=== PATIENT | female | born 1970 | race Caucasian/White ===

== ENCOUNTER 2017-02-27 16:55 | Emergency (ER) | payer SELFPAY ==
[2017-02-27 17:06] VITALS: TEMP 98; BMI 37.8
[2017-02-27] MEDS ORDERED: METOCLOPRAMIDE HCL INJECTION 10 MG/2 ML VIAL IVPB ONE (19:48)
[2017-02-27] MEDS ORDERED: morphine CARPU-JECT 4 MG/1 ML DISP.SYRIN IVPUSH ONE (19:48)
[2017-02-27] MEDS ORDERED: SODIUM CHLORIDE 1,000 ML IV STA (19:48)
[2017-02-27 20:06] LABS: BASOPHIL 0.7 % (0-2.0); EOSINOPHIL 0.9 % (0-4.5); MCH 31.7 pg (25.7-33.7); MCHC 34.3 g/dl (32.0-36.0); MEAN CELL VOLUME 92.4 fl (80-96); MEAN PLT VOLUME 6.6 fl (7.5-11.1); NEUTROPHILS 57.5 % (42.8-82.8); PLATELET COUNT 291 K/MM3 (134-434); RDW 12.9 % (11.6-15.6); WHITE BLOOD COUNT 6.2 K/mm3 (4.0-10.0)
[2017-02-27 20:17] LABS: URINE APPEARANCE CLEAR; URINE BILIRUBIN NEGATIVE (NEGATIVE); URINE BLOOD NEGATIVE (NEGATIVE); URINE COLOR STRAW; URINE GLUCOSE (UA) NEGATIVE (NEGATIVE); URINE KETONE NEGATIVE (NEGATIVE); URINE LEUK ESTERASE NEGATIVE (NEGATIVE); URINE NITRITE NEGATIVE (NEGATIVE); URINE PROTEIN NEGATIVE (NEGATIVE); URINE UROBILINOGEN NEGATIVE E.U./dl (0.2-1.0)
[2017-02-27] MEDS ORDERED: morphine CARPU-JECT 4 MG/1 ML DISP.SYRIN ONE (20:26)
[2017-02-27] MEDS ORDERED: METOCLOPRAMIDE HCL INJECTION 10 MG/2 ML VIAL ONE (20:26)
[2017-02-27 20:48] LABS: ALBUMIN 3.8 g/dl (3.4-5.0); ANION GAP 10 (8-16); BILIRUBIN,TOTAL 0.7 mg/dL (0.2-1.0); C-REACTIVE PROTEIN 0.5 MG/DL (0.00-0.3); CALCIUM 9.2 mg/dL (8.5-10.1); CO2 26 mmol/L (21-32); COCKROFT - GAULT 139.825; CREATININE 0.8 mg/dL (0.55-1.02); GLUCOSE,RANDOM 79 mg/dL (74-106); SGOT/AST 53 U/L (15-37); SGPT/ALT 59 U/L (12-78); TOT PROT 7.7 g/dl (6.4-8.2)
[2017-02-27 20:50] LABS: ALK PHOS 81 U/L (45-117)
--- NOTE | 2017-02-27 22:45 | PDOC ---
History of Present Illness - General Chief Complaint: Pain Stated Complaint: PCP SENT/CYST Time Seen by Provider: 02/27/17 19:20 History Source: Patient Exam Limitations: No Limitations - History of Present Illness Travel History: No Initial Comments: 02/27/17 22:40 46yo Female w/ PmHx: Lupus, Hep C, COPD, Asthma, HTN, Hypothyroidism presents to ED c/o right pelvic pain. Patient states she was dx: by her ENGINEERING MODEL MAKER with complex ovarion cyst recently. 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 Patient denies fever, CP, back pain, abd pain, n/v/d, diff breathing, or any other complaints at this time. Timing/Duration: reports: getting worse Quality: reports: moderate Abdominal Pain Onset Location: reports: other (Right Pelvic Pain) Pain Radiation: reports: no radiation Activities at Onset: reports: none Treatment Prior to Arrive: improves with: analgesics Aggravating Factors: worse with: None, Defecation, Eating, Emotional upset, Exertion, [place], Movement, Voiding, Change in position Alleviating Factors: worse with: None, Belching, Shallow Breathing, Defecation, Eating, Holding Breath, Passing Gas, Change in Position, Rest, Voiding, Vomiting Past History - Travel Traveled outside of the country in the last 30 days: No Close contact w/someone who was outside of country & ill: No - Past Medical History Allergies/Adverse Reactions: Allergies Allergy/AdvReac Type Severity Reaction Status Date / Time cephalexin monohydrate Allergy Verified 02/27/17 17:06 [From Keflex] codeine Allergy Verified 02/27/17 17:06 Sulfa (Sulfonamide Allergy Verified 02/27/17 17:06 Antibiotics) Home Medications: Ambulatory Orders Atenolol [Tenormin -] 25 mg PO DAILY 02/05/17 Levothyroxine [Synthroid -] 125 mcg PO DAILY 02/05/17 Tramadol HCl 50 mg PO BID PRN #6 tablet MDD 2 02/05/17 Anemia: Yes Asthma: Yes COPD: Yes Diabetes: Yes GI Disorders: Yes (ulcers) Liver Disease: Yes (hep c) Thyroid Disease: Yes - Surgical History Abdominal Surgery: Yes (EXP LAP) Cholecystectomy: Yes - Psycho/Social/Smoking Cessation Hx Anxiety: No Suicidal Ideation: No Smoking History: Current every day smoker Have you smoked in the past 12 months: Yes Number of Cigarettes Smoked Daily: 5 Information on smoking cessation initiated: No Hx Alcohol Use: No Drug/Substance Use Hx: No Substance Use Type: None Review of Systems - Review of Systems Able to Perform ROS?: Yes Is the patient limited [place]ian proficient: No Cardiac (ROS): No: Chest Pain ABD/GI: Yes: Other (Right Pelvic Pain). No: Constipated, Diarrhea, Nausea, Poor Appetite, Poor Fluid Intake, Rectal Bleeding, Vomiting, Abdominal cramping Musculoskeletal: No: Back Pain All Other Systems: Reviewed and Negative *Physical Exam - Vital Signs Last Vital Signs Temp Pulse Resp BP Pulse Ox 98.0 F 99 H 20 133/74 100 02/27/17 17:03 02/27/17 20:57 02/27/17 20:57 02/27/17 20:57 02/27/17 20:57 - Physical Exam General Appearance: Yes: Nourished, Appropriately Dressed. No: Apparent Distress, Mild Distress, Moderate Distress, Severe Distress Neck: positive: Trachea midline, Supple. negative: Lymphadenopathy (R), Lymphadenopathy (L) Respiratory/Chest: positive: Lungs Clear, Normal Breath Sounds. negative: Chest Tender, Respiratory Distress, Accessory Muscle Use, Labored Respiration, Rapid RR, Stridor Cardiovascular: positive: Regular Rhythm, Regular Rate Gastrointestinal/Abdominal: positive: Normal Bowel Sounds, Tender, Soft, Rebound , Tenderness (Right adnexa pain on deep palpation. + Rebound.). negative: Distended, Guarding, Hernia Musculoskeletal: positive: Normal Inspection. negative: CVA Tenderness Extremity: positive: Normal Capillary Refill, Normal Inspection, Normal Range of Motion, Pelvis Stable. negative: Pedal Edema, Swelling, Calf Tenderness, Erythema, Inflammation Integumentary: positive: Normal Color, Dry, Warm Neurologic: positive: stone mill operator II-XII NML intact, Fully Oriented, Alert, Normal Mood/ Affect, Normal Response, Motor Strength 02/08 ED Treatment Course - LABORATORY CBC & Chemistry Diagram: 02/27/17 19:45 02/27/17 19:45 - ADDITIONAL ORDERS Additional order review: Laboratory Results 02/27/17 02/27/17 02/27/17 19:45 19:45 19:45 Sodium 139 Potassium 4.3 Chloride 103 Carbon Dioxide 26 Anion Gap 10 BUN 9 D Creatinine 0.8 Creat Clearance w eGFR > 60 Random Glucose 79 Calcium 9.2 Total Bilirubin 0.7 AST 53 H ALT 59 Alkaline Phosphatase 81 C-Reactive Protein 0.5 H Total Protein 7.7 Albumin 3.8 Beta HCG, Quant 1.2 Urine Color Straw Urine Appearance Clear Urine pH 6.0 Ur Specific [place] 1.010 Urine Protein Negative Urine Glucose (UA) Negative Urine Ketones Negative Urine Blood Negative Urine Nitrite Negative Urine Bilirubin Negative Urine Urobilinogen Negative Ur Leukocyte Esterase Negative Blood Type A NEGATIVE Antibody Screen Negative 02/27/17 19:45 RBC 4.29 MCV 92.4 MCHC 34.3 RDW 12.9 MPV 6.6 L Neutrophils % 57.5 Lymphocytes % 33.3 Monocytes % 7.6 Eosinophils % 0.9 Basophils % 0.7 - RADIOLOGY Radiology Studies Ordered: Category Date Time Status PELVIS(OTHER) US [US] Stat Ultrasound 02/27/17 19:45 Completed TRANSVAGINAL ULTRASOUND US [US] Stat Ultrasound 02/27/17 19:45 Completed - Medications Given in the ED: ED Medications Discontinued Medications Generic Name Dose Route Start Last Admin Trade Name Christianq PRN Reason Stop Dose Admin Sodium Chloride 1,000 mls @ 1,000 mls/hr 02/27/17 19:48 02/27/17 20:34 Normal Saline - IV 02/27/17 20:47 1,000 mls/hr ASDIR STA Administration Metoclopramide HCl 10 mg 02/27/17 19:48 02/27/17 20:34 Reglan Injection - IVPB 02/27/17 19:49 10 mg ONCE ONE Administration Morphine Sulfate 4 mg 02/27/17 19:48 02/27/17 20:34 Morphine Injection - IVPUSH 02/27/17 19:49 4 mg ONCE ONE Administration *DC/Admit/Observation/Transfer Diagnosis at time of Disposition: Ovarian cyst - Discharge Dispostion Disposition: HOME Condition at time of disposition: Improved Admit: No - Patient Instructions Printed Discharge Instructions: DI for Ovarian Cyst Removal, DI for Ovarian Cyst Additional Instructions: FOLLOW UP WITH YOUR ENGINEERING MODEL MAKER THIS WEEK FOR FURTHER EVALUATION. MOTRIN OR TYLENOL FOR PAIN NEEDED. APPLY WARM COMPRESS TO AFFECTED AREA NEEDED FOR PAIN. Print Language: SERBIAN
[2017-02-27] MEDS ORDERED: OXYCODONE/APAP 5/325MG COMBO TABLET PO ONE (22:49)
[2017-02-27 23:08] VITALS: BP 131/76; PULSE 93
== END 2017-02-27 23:07 | disposition home or self-care (01) ==
LOC: JER 16:55
PROC: 3E033NZ Introduction of Analgesics, Hypnotics, Sedatives into Peripheral Vein, Percutaneous Approach (ICD-10-PCS; principal; 2017-02-27)
PROC: 3E033GC Introduction of Other Therapeutic Substance into Peripheral Vein, Percutaneous Approach (ICD-10-PCS; 2017-02-27)
DX: N83.201 Unspecified ovarian cyst, right side (principal); I10 Essential (primary) hypertension; E03.9 Hypothyroidism, unspecified; J44.9 Chronic obstructive pulmonary disease, unspecified; J45.909 Unspecified asthma, uncomplicated; B18.2 Chronic viral hepatitis C
CPT/HCPCS: 36415; 76830-TC; 76856-TC; 80053; 81003; 84702; 85025; 85651; 86140; 86850; 86900; 86901; 87086; 99283-25

== ENCOUNTER 2017-03-01 14:25 | Emergency (ER) | payer SELFPAY ==
[2017-03-01 14:33] VITALS: BP 133/77; PULSE 81; TEMP 97.9; BMI 37.8
[2017-03-01] MEDS ORDERED: SODIUM CHLORIDE 1,000 ML IV STA (17:40)
[2017-03-01] MEDS ORDERED: morphine CARPU-JECT 4 MG/1 ML DISP.SYRIN IVPUSH ONE (17:40)
[2017-03-01] MEDS ORDERED: ONDANSETRON 4 MG/2 ML VIAL IVPB ONE (17:41)
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
[2017-03-01] MEDS ORDERED: morphine CARPU-JECT 4 MG/1 ML DISP.SYRIN ONE (17:53)
[2017-03-01] MEDS ORDERED: ONDANSETRON 4 MG/2 ML VIAL ONE (17:53)
== END 2017-03-01 18:39 | disposition home or self-care (01) ==
LOC: JER 14:25
PROC: 3E033NZ Introduction of Analgesics, Hypnotics, Sedatives into Peripheral Vein, Percutaneous Approach (ICD-10-PCS; principal; 2017-03-01)
PROC: 3E033GC Introduction of Other Therapeutic Substance into Peripheral Vein, Percutaneous Approach (ICD-10-PCS; 2017-03-01)
DX: R10.31 Right lower quadrant pain (principal); N83.201 Unspecified ovarian cyst, right side; I10 Essential (primary) hypertension; E03.9 Hypothyroidism, unspecified; J44.9 Chronic obstructive pulmonary disease, unspecified
CPT/HCPCS: 99282-25

== ENCOUNTER 2017-03-05 10:35 | Emergency (ER) | payer SELFPAY ==
[2017-03-05 10:42] VITALS: BP 136/71; PULSE 100; TEMP 98.2; BMI 37.8
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
== END 2017-03-05 11:35 | disposition left against medical advice (07) ==
LOC: JER 10:35
DX: Z53.21 Procedure and treatment not carried out due to patient leaving prior to being seen by health care provider (principal)
CPT/HCPCS: 99282-25

== ENCOUNTER 2017-07-13 18:16 | Emergency (ER) | payer OTHER ==
[2017-07-13 18:23] VITALS: BP 155/76; PULSE 113; TEMP 98; BMI 39.4
[2017-07-13] MEDS ORDERED: BUPIVACAINE HCL/PF 0.5% (5MG/ML) 10 ML VIAL ONE (19:35)
[2017-07-13] MEDS ORDERED: CLINDAMYCIN HCL 150 MG CAPSULE (FP) PO ONE (19:41)
--- NOTE | 2017-07-13 19:51 | PDOC ---
History of Present Illness - General Chief Complaint: Toothache Stated Complaint: toothache Time Seen by Provider: 07/13/17 19:28 - History of Present Illness Initial Comments: 07/13/17 19:46 CHIEF COMPLAINT: tooth pain HISTORY OF PRESENT ILLNESS: 47 yo F presents to [facility] with R molar tooth pain. Patient states she had her tooth pulled a few days ago and now is feeling that she has an infection under the tooth causing her a lot of pain. Patient states she has been rinsing with chlorexidine mouthwash prescribed by her dentist but "it's not doing anything." She denies any fever, chills, vomiting, diarrhea. PAST MEDICAL HISTORY: Denies past medical history FAMILY HISTORY: Denies SOCIAL HISTORY: Denies tobacco, alcohol, illicit drug use. SURGICAL HISTORY: Denies ALLERGIES: No known drug allergies REVIEW OF SYSTEMS General/Constitutional: Denies fever or chills. Denies weakness, weight change. HEENT: My tooth really hurts. Denies change in vision. Denies ear pain or discharge. Denies sore throat. Cardiovascular: Denies chest pain or shortness of breath. Respiratory: Denies cough, wheezing, or hemoptysis. Gastrointestinal: Denies nausea, vomiting, diarrhea or constipation. Denies rectal bleeding. Genitourinary: Denies dysuria, frequency, or change in urination. Musculoskeletal: Denies joint or muscle swelling or pain. Denies neck or back pain. Skin and breasts: Denies rash or easy bruising. PHYSICAL EXAM General Appearance: Well-appearing, appropriately dressed. No apparent distress. HEENT: Poor dentition, 2nd lower molar absent. Dental caries visualized. No dental abscess. EOMI, PERRLA, normal ENT inspection, normal voice, TMs normal, pharynx normal. No conjunctival pallor. No photophobia, scleral icterus. Respiratory/Chest: Lungs CTAB. Cardiovascular: RRR. S1, S2. Musculoskeletal/Extremities: Normal inspection. No tenderness to extremities, pedal edema, swelling, erythema or deformity. Integumentary: Appropriate color, dry, warm. No cyanosis, erythema, jaundice or rash Neurologic: heel edge inker machine II-XII intact. Fully oriented, alert. Appropriate mood/affect. Motor strength 5/5. No appreciable EOM palsy, facial droop or sensory deficit. Past History - Past Medical History Allergies/Adverse Reactions: Allergies Allergy/AdvReac Type Severity Reaction Status Date / Time cephalexin monohydrate Allergy Verified 07/13/17 18:23 [From Keflex] codeine Allergy Verified 07/13/17 18:23 Sulfa (Sulfonamide Allergy Verified 07/13/17 18:23 Antibiotics) Home Medications: Ambulatory Orders Atenolol [Tenormin -] 25 mg PO DAILY 02/05/17 Levothyroxine [Synthroid -] 125 mcg PO DAILY 02/05/17 Aspirin [ASA -] 81 mg PO DAILY 07/13/17 Clindamycin [Cleocin -] 150 mg PO Q8H #21 capsule 07/13/17 Clindamycin [Cleocin -] 300 mg PO Q8H #21 capsule 07/13/17 Anemia: Yes Asthma: Yes COPD: Yes Diabetes: Yes GI Disorders: Yes (ulcers) Liver Disease: Yes (hep c) Thyroid Disease: Yes - Surgical History Abdominal Surgery: Yes (EXP LAP) Cholecystectomy: Yes - Suicide/Smoking/Psychosocial Hx Smoking History: Current every day smoker Have you smoked in the past 12 months: Yes Number of Cigarettes Smoked Daily: 6 Information on smoking cessation initiated: Yes 'Breaking Loose' booklet given: 07/13/17 Hx Alcohol Use: No Drug/Substance Use Hx: No Substance Use Type: None *Physical Exam - Vital Signs Last Vital Signs Temp Pulse Resp BP Pulse Ox 98 F 113 H 19 155/76 99 07/13/17 18:21 07/13/17 18:21 07/13/17 18:21 07/13/17 18:21 07/13/17 18:21 Medical Decision Making - Medical Decision Making 07/13/17 19:49 47 yo F presents to fast track with R molar tooth pain. Dental block performed, patient expressed immediately relief but requests pain medication "for when this wears off." 1 Percocet given in ED; advised pt to f/u with dentist as soon as possible. 450 mg clindamycin given in ED Clindamycin rx sent to pharm. Advised patient to take meds as prescribed and to f/u with dentist this week. Patient verbalized understanding and agrees to plan. *DC/Admit/Observation/Transfer Diagnosis at time of Disposition: Pain, dental - Discharge Dispostion Disposition: HOME Condition at time of disposition: Stable Admit: No - Prescriptions Prescriptions: Clindamycin [Cleocin -] 150 mg PO Q8H #21 capsule Clindamycin [Cleocin -] 300 mg PO Q8H #21 capsule - Patient Instructions Printed Discharge Instructions: DI for Dental Pain Additional Instructions: Please take medications as prescribed; finish the entire course of antibiotics even if your symptoms improve. Follow up with your dentist as soon as possible for further evaluation of your tooth pain. If you develop fever, vomiting, diarrhea, chills, or any new or worsening symptoms, please return to the ER.
[2017-07-13] MEDS ORDERED: BUPIVACAINE HCL/PF (5 MG/ML) 30 ML VIAL IJ ONE (19:53)
== END 2017-07-13 19:57 | disposition home or self-care (01) ==
LOC: JERFT 18:16
DX: K08.89 Other specified disorders of teeth and supporting structures (principal)
CPT/HCPCS: 99281-25

== ENCOUNTER 2017-07-28 16:30 | Emergency (ER) | payer OTHER ==
[2017-07-28 16:47] VITALS: BMI 38.8
[2017-07-28] MEDS ORDERED: SODIUM CHLORIDE 1,000 ML IV STA (17:01)
[2017-07-28] MEDS ORDERED: ONDANSETRON 4 MG/2 ML VIAL IVPUSH ONE (17:01)
--- NOTE | 2017-07-28 17:06 | PDOC ---
History of Present Illness - General History Source: Patient - History of Present Illness Timing/Duration: reports: getting worse Quality: reports: severe, sharpness Abdominal Pain Onset Location: reports: suprapubic, flank <Lavell Medel - Last Filed: 07/28/17 19:05> <Sheba Mendoza - Last Filed: 07/28/17 20:00> <Soledad Peraza - Last Filed: 07/31/17 16:29> - General Chief Complaint: Pain, Acute Stated Complaint: PAIN Time Seen by Provider: 07/28/17 16:55 Past History - Past Medical History Anemia: Yes (CRYNOGLOBULIN ANEMIA) Asthma: Yes COPD: Yes Diabetes: Yes GI Disorders: Yes (ulcers) Liver Disease: Yes (hep c) Thyroid Disease: Yes - Surgical History Abdominal Surgery: Yes (EXP LAP) Cholecystectomy: Yes - Suicide/Smoking/Psychosocial Hx Smoking History: Current every day smoker Have you smoked in the past 12 months: Yes Number of Cigarettes Smoked Daily: 6 Information on smoking cessation initiated: No 'Breaking Loose' booklet given: 07/13/17 Hx Alcohol Use: No Drug/Substance Use Hx: No Substance Use Type: None <Lavell Medel - Last Filed: 07/28/17 19:05> <Sheba Mendoza - Last Filed: 07/28/17 20:00> <Soledad Peraza - Last Filed: 07/31/17 16:29> - Past Medical History Allergies/Adverse Reactions: Allergies Allergy/AdvReac Type Severity Reaction Status Date / Time cephalexin monohydrate Allergy Verified 07/28/17 16:47 [From Keflex] codeine Allergy Verified 07/28/17 16:47 Sulfa (Sulfonamide Allergy Verified 07/28/17 16:47 Antibiotics) Home Medications: Ambulatory Orders Atenolol [Tenormin -] 25 mg PO DAILY 02/05/17 Levothyroxine [Synthroid -] 125 mcg PO DAILY 02/05/17 Aspirin [ASA -] 81 mg PO DAILY 07/13/17 Non-Formulary 0 mg PO ASDIR 07/28/17 Omeprazole 20 mg PO DAILY 07/28/17 Review of Systems - Review of Systems Constitutional: No: Chills, Fever ABD/GI: Yes: Nausea. No: Blood Streaked Bowels, Constipated, Diarrhea, Vomiting , Tarry Stools : Yes: Dysuria, Frequency, Flank Pain. No: Discharge, Hematuria <Lavell Medel - Last Filed: 07/28/17 19:05> *Physical Exam - Vital Signs Last Vital Signs Temp Pulse Resp BP Pulse Ox 98.4 F 105 H 18 136/90 100 07/28/17 16:43 07/28/17 16:43 07/28/17 16:43 07/28/17 16:43 07/28/17 16:43 - Physical Exam General Appearance: Yes: Appropriately Dressed. No: Apparent Distress HEENT: positive: Normal Voice Neck: positive: Supple Respiratory/Chest: positive: Lungs Clear, Normal Breath Sounds. negative: Respiratory Distress Cardiovascular: positive: Regular Rate, S1, S2 Gastrointestinal/Abdominal: positive: Tender (mild ttp to R flank, no CVAT) Musculoskeletal: negative: CVA Tenderness Integumentary: positive: Dry, Warm Neurologic: positive: Fully Oriented, Alert, Normal Mood/Affect <Lavell Medel - Last Filed: 07/28/17 19:05> - Vital Signs Last Vital Signs Temp Pulse Resp BP Pulse Ox 98.4 F 105 H 18 136/90 100 07/28/17 16:43 07/28/17 16:43 07/28/17 16:43 07/28/17 16:43 07/28/17 16:43 <Sheba Mendoza - Last Filed: 07/28/17 20:00> - Vital Signs Last Vital Signs Temp Pulse Resp BP Pulse Ox 97.9 F 72 18 119/81 98 07/28/17 20:11 07/28/17 20:11 07/28/17 20:11 07/28/17 20:11 07/28/17 20:11 <Soledad Peraza - Last Filed: 07/31/17 16:29> ED Treatment Course - LABORATORY CBC & Chemistry Diagram: 07/28/17 18:00 07/28/17 18:00 <Lavell Medel - Last Filed: 07/28/17 19:05> - LABORATORY CBC & Chemistry Diagram: 07/28/17 18:00 07/28/17 18:55 - ADDITIONAL ORDERS Additional order review: Laboratory Results 07/28/17 07/28/17 07/28/17 18:55 18:55 18:25 Sodium 138 Potassium 4.7 Chloride 106 Carbon Dioxide 26 Anion Gap 6 L BUN 13 D Creatinine 0.7 Creat Clearance w eGFR > 60 Random Glucose 87 Calcium 8.8 Total Bilirubin 0.8 AST 19 D ALT 22 D Alkaline Phosphatase 64 D Total Protein 7.2 Albumin 3.7 Lipase 268 Serum , Qual Negative Urine Color Urine Appearance Urine pH Urine Protein Urine Glucose (UA) Urine Ketones Urine Blood Urine Nitrite Urine Bilirubin Urine Urobilinogen 07/28/17 07/28/17 18:00 18:00 Sodium Cancelled Potassium Cancelled Chloride Cancelled Carbon Dioxide Cancelled Anion Gap Cancelled BUN Cancelled Creatinine Cancelled Creat Clearance w eGFR Cancelled Random Glucose Cancelled Calcium Cancelled Total Bilirubin Cancelled AST Cancelled ALT Cancelled Alkaline Phosphatase Cancelled Total Protein Cancelled Albumin Cancelled Lipase Cancelled Serum , Qual Urine Color Yellow Urine Appearance Slcloudy Urine pH 5.0 Urine Protein Negative Urine Glucose (UA) Negative Urine Ketones Negative Urine Blood Negative Urine Nitrite Negative Urine Bilirubin Negative Urine Urobilinogen Negative 07/28/17 18:00 RBC 4.33 MCV 92.8 MCHC 35.0 RDW 13.3 MPV 7.3 L D Neutrophils % 61.5 Lymphocytes % 30.4 Monocytes % 6.8 Eosinophils % 0.6 Basophils % 0.7 - Medications Given in the ED: ED Medications Discontinued Medications Generic Name Dose Route Start Last Admin Trade Name Freq PRN Reason Stop Dose Admin Sodium Chloride 1,000 mls @ 1,000 mls/hr 07/28/17 17:01 07/28/17 17:56 Normal Saline - IV 07/28/17 18:00 1,000 mls/hr ASDIR STA Administration Ketorolac Tromethamine 30 mg 07/28/17 17:01 07/28/17 17:56 Toradol Injection - IVPUSH 07/28/17 17:02 30 mg ONCE ONE Administration Ondansetron HCl 4 mg 07/28/17 17:01 07/28/17 17:56 Zofran Injection IVPUSH 07/28/17 17:02 4 mg ONCE ONE Administration <Sheba Mendoza D - Last Filed: 07/28/17 20:00> - LABORATORY CBC & Chemistry Diagram: 07/28/17 18:00 07/28/17 18:55 - ADDITIONAL ORDERS Additional order review: 07/28/17 18:00 Urine Culture - Final Urine - Urine Clean Catch Contaminated: Please Repeat 07/28/17 18:00 RBC 4.33 MCV 92.8 MCHC 35.0 RDW 13.3 MPV 7.3 L D Neutrophils % 61.5 Lymphocytes % 30.4 Monocytes % 6.8 Eosinophils % 0.6 Basophils % 0.7 - Medications Given in the ED: ED Medications Discontinued Medications Generic Name Dose Route Start Last Admin Trade Name Jorje PRN Reason Stop Dose Admin Sodium Chloride 1,000 mls @ 1,000 mls/hr 07/28/17 17:01 07/28/17 17:56 Normal Saline - IV 07/28/17 18:00 1,000 mls/hr ASDIR STA Administration Ketorolac Tromethamine 30 mg 07/28/17 17:01 07/28/17 17:56 Toradol Injection - IVPUSH 07/28/17 17:02 30 mg ONCE ONE Administration Ondansetron HCl 4 mg 07/28/17 17:01 07/28/17 17:56 Zofran Injection IVPUSH 07/28/17 17:02 4 mg ONCE ONE Administration <Soledad Peraza - Last Filed: 07/31/17 16:29> Medical Decision Making - Medical Decision Making 07/28/17 17:02 47-year-old female currently on medication for hep C virus, currently being w/u for possible precancerous colonic polyps, smoker, CAD, s/p ryan, here with ? dysuria w/ right flank pain that started 2 days after starting new medication for hep C. Patient concerned that symptoms may represent side effects of meds vs kidney infection. Denies hematuria. + nausea, no vomiting, fever or chills. No history of kidney stones See exam R flank pain w/ ?dysuria R/o pyelo, less likely stone -pain control -IVF -labs -?CT 07/28/17 17:06 07/28/17 19:00 Pt reports resolution of pain with Toradol. CBC and urine unremarkable. Chemistry pending. If rest of labs normal, patient may not need to be scanned at this time. Anticipate follow-up with PMD this week 07/28/17 19:04 07/28/17 19:05 Signed out to PEDIATRIC GENETICIST Reji a/w labs and dispo <Yessy MedelDannie - Last Filed: 07/28/17 19:05> *DC/Admit/Observation/Transfer <Yessy MedelDannie - Last Filed: 07/28/17 19:05> - Discharge Dispostion Admit: No <Sheba Mendoza - Last Filed: 07/28/17 20:00> - Attestations Physician Attestion: I reviewed the case with the mid-level practitioner and agree with the mid- level practitioner's assessment, diagnosis and disposition. <Soledad Peraza - Last Filed: 07/31/17 16:29> Diagnosis at time of Disposition: Abdominal pain Qualifiers: Abdominal location: right upper quadrant Qualified Code(s): R10.11 - Right upper quadrant pain - Discharge Dispostion Disposition: HOME Condition at time of disposition: Improved - Referrals Referrals: Manuel Morfin [Primary Care Provider] - - Patient Instructions Printed Discharge Instructions: DI for Abdominal Pain-Adult Additional Instructions: FOLLOW UP WITH YOUR PRIMARY CARE PROVIDER THIS WEEK. CALL TO SCHEDULE APPOINTMENT FOR FURTHER EVALUATION. IF YOU EXPERIENCE WORSENING SYMPTOMS, FEVER , BACK PAIN, NAUSEA OR VOMITING. RETURN FOR FURTHER EVALUATION. Print Language: YORUBA
[2017-07-28] MEDS ORDERED: ONDANSETRON 4 MG/2 ML VIAL ONE ×2 (17:55→17:59)
[2017-07-28] MEDS ORDERED: KETOROLAC TROMETHAMINE 30 MG/1 ML VIAL ONE (17:55)
[2017-07-28] MEDS: KETOROLAC TROMETHAMINE 30 MG/1 ML VIAL IVPUSH ONE ×2 (17:56→18:12)
[2017-07-28 18:15] LABS: BASOPHIL 0.7 % (0-2.0); EOSINOPHIL 0.6 % (0-4.5); MCH 32.5 pg (25.7-33.7); MEAN CELL VOLUME 92.8 fl (80-96); MEAN PLT VOLUME 7.3 fl (7.5-11.1); NEUTROPHILS 61.5 % (42.8-82.8); PLATELET COUNT 271 K/MM3 (134-434); RDW 13.3 % (11.6-15.6); WHITE BLOOD COUNT 7.8 K/mm3 (4.0-10.0)
[2017-07-28 18:23] LABS: URINE APPEARANCE SLCLOUDY; URINE BILIRUBIN NEGATIVE (NEGATIVE); URINE BLOOD NEGATIVE (NEGATIVE); URINE COLOR YELLOW; URINE GLUCOSE (UA) NEGATIVE (NEGATIVE); URINE KETONE NEGATIVE (NEGATIVE); URINE NITRITE NEGATIVE (NEGATIVE); URINE PROTEIN NEGATIVE (NEGATIVE); URINE UROBILINOGEN NEGATIVE mg/dL (0.2-1.0)
[2017-07-28 19:32] LABS: ALBUMIN 3.7 g/dl (3.4-5.0); ALK PHOS 64 U/L (45-117); ANION GAP 6 (8-16); BILIRUBIN,TOTAL 0.8 mg/dL (0.2-1.0); CALCIUM 8.8 mg/dL (8.5-10.1); CO2 26 mmol/L (21-32); CREATININE 0.7 mg/dL (0.55-1.02); GLUCOSE,RANDOM 87 mg/dL (74-106); SGOT/AST 19 U/L (15-37); SGPT/ALT 22 U/L (12-78); TOT PROT 7.2 g/dl (6.4-8.2)
[2017-07-28 20:12] VITALS: BP 119/81; PULSE 72; TEMP 97.9
[2017-07-28 22:34] LABS: URINE LEUK ESTERASE Negative (NEGATIVE)
== END 2017-07-28 20:12 | disposition home or self-care (01) ==
LOC: JER 16:30
PROC: 3E0333Z Introduction of Anti-inflammatory into Peripheral Vein, Percutaneous Approach (ICD-10-PCS; principal; 2017-07-28)
PROC: 3E033GC Introduction of Other Therapeutic Substance into Peripheral Vein, Percutaneous Approach (ICD-10-PCS; 2017-07-28)
DX: R10.11 Right upper quadrant pain (principal); R10.31 Right lower quadrant pain; E11.9 Type 2 diabetes mellitus without complications; E03.9 Hypothyroidism, unspecified; B18.2 Chronic viral hepatitis C; J45.909 Unspecified asthma, uncomplicated; J44.9 Chronic obstructive pulmonary disease, unspecified; D64.89 Other specified anemias
CPT/HCPCS: 36415; 80053; 81003; 83690; 84703; 85025; 87086; 96374; 96375; 99284-25